=== PATIENT | male | born 1980 | race Caucasian/White ===

== ENCOUNTER 2020-05-22 11:05 | Emergency (ER) | payer MEDICAID ==
[~2020-05-22] VITALS: Ht 195.6 cm; Wt 90.7 kg
[2020-05-22 11:05] VITALS: BP_SYST 89
--- NOTE | 2020-05-22 11:05 | NUR ---
BROUGHT BACK TO BED #6 VIA WHEELCHAIR, PLACED IN BED AND TRIAGED. REPORT GIVEN TO KAY
--- NOTE | 2020-05-22 11:10 | NUR ---
ER Dr. Garcia at bedside examining patient.
--- NOTE | 2020-05-22 11:20 | NUR ---
Patient came from home for evaluation of sudden onsite dizziness, nausea, and weakness last night. Patient states that it started around 2200 last night and he still feels weak and dizzy. He denies pain at this time.
[2020-05-22] MEDS ORDERED: MECLIZINE HCL 25 MG TABLET (ANITVERT) PO ONE (11:45)
[2020-05-22 11:51] LABS: BASOPHILS # (AUTO) 0.1 K/uL (0.0-0.2); BASOPHILS % (AUTO) 0.4 % (0.0-2.0); EOSINOPHILS % (AUTO) 0.1 % (0.0-4.0); HEMATOCRIT 40.6 % (36-54); HEMOGLOBIN 13.9 g/dL (14.0-18.0); LYMPHOCYTES # (AUTO) 1.9 K/uL (1.0-5.5); LYMPHOCYTES % (AUTO) 13.5 % (20.5-51.5); MEAN CORPUSCULAR HEMOGLOBIN 32 pg (27-31); MEAN CORPUSCULAR HGB CONC 34 % (32-36); MEAN CORPUSCULAR VOLUME 93 fL (79.0-98.0); MONOCYTES # (AUTO) 1.2 K/uL (0.0-1.0); MONOCYTES % (AUTO) 8.6 % (1.7-9.3); NEUTROPHILS # (AUTO) 10.7 K/uL (1.8-7.7); NEUTROPHILS % (AUTO) 77.4 % (40.0-70.0); PLATELET COUNT (AUTO) 396 K/uL (130-430); RED BLOOD CELL COUNT(AUTO) 4.35 MIL/uL (4.2-6.2); RED CELL DISTRIBUTION WIDTH 13.3 % (9.0-15.0); WHITE BLOOD COUNT (AUTO) 13.9 K/uL (4.8-10.8)
--- NOTE | 2020-05-22 11:54 | NUR ---
Antivert not available. Spoke with Lelo in pharmacy, she stated they will send it over.
--- NOTE | 2020-05-22 12:00 | NUR ---
Patient transported to radiology via WC, accompanied by STAFF.
[2020-05-22 12:09] LABS: INR 1.1 (0.80-1.20); PROTHROMBIN TIME 11.6 SECS (9.5-12.5)
[2020-05-22 12:10] LABS: CALCIUM 8.8 mg/dL (8.4-11.0); CREATININE 1.07 mg/dL (0.55-1.30); POTASSIUM 4.1 mmol/L (3.5-5.1)
--- NOTE | 2020-05-22 12:15 | NUR ---
Returned from radiology, back to [facility].
[2020-05-22 12:16] LABS: ALBUMIN 3.8 g/dL (3.4-4.8); TOTAL BILIRUBIN 0.4 mg/dL (0.0-1.0)
[2020-05-22] MEDS ORDERED: MECL-160 PO (13:38)
--- NOTE | 2020-05-22 13:48 | NUR ---
Patient given written and verbal discharge instructions and verbalizes understanding. ER MD discussed with patient the results and treatment provided. Patient in stable condition. ID arm band removed. IV catheter removed intact and dressing applied, no active bleeding. Rx of antivert given. Patient educated on pain management and to follow up with PMD. Pain Scale 0/10. Opportunity for questions provided and answered. Medication side effect fact sheet provided.
[2020-05-22 13:49] VITALS: BP_SYST 106
== END 2020-05-22 13:48 | disposition home or self-care (01) ==
LOC: SED 11:05
DX: H81.10 Benign paroxysmal vertigo, unspecified ear (principal)
CPT/HCPCS: 36415; 70450-TC; 71045; 76376; 80053; 82962; 85025; 85610-TC; 85730-TC; 93005; 99285

== ENCOUNTER 2022-04-01 11:23 | Emergency (ER) | payer MEDICAID ==
[~2022-04-01] VITALS: Ht 195.6 cm; Wt 90.7 kg
[~2022-04-01 11:23] MED LIST: MECL-160 PO
[2022-04-01 11:28] VITALS: BP_SYST 137
[2022-04-01 12:10] LABS: BASOPHILS # (AUTO) 0.1 K/uL (0.0-0.2); BASOPHILS % (AUTO) 0.7 % (0.0-2.0); EOSINOPHILS # (AUTO) 0.2 K/uL (0.0-0.4); HEMOGLOBIN 14.6 g/dL (14.0-18.0); LYMPHOCYTES % (AUTO) 27.4 % (20.5-51.5); MEAN CORPUSCULAR HEMOGLOBIN 33 pg (27-31); MEAN CORPUSCULAR HGB CONC 35 % (32-36); MEAN CORPUSCULAR VOLUME 93 fL (79.0-98.0); MONOCYTES # (AUTO) 1.7 K/uL (0.0-1.0); MONOCYTES % (AUTO) 15.4 % (1.7-9.3); NEUTROPHILS # (AUTO) 5.9 K/uL (1.8-7.7); NEUTROPHILS % (AUTO) 54.5 % (40.0-70.0); PLATELET COUNT (AUTO) 462 K/uL (130-430); RED BLOOD CELL COUNT(AUTO) 4.51 MIL/uL (4.2-6.2); RED CELL DISTRIBUTION WIDTH 13.5 % (9.0-15.0); WHITE BLOOD COUNT (AUTO) 10.9 K/uL (4.8-10.8)
[2022-04-01 12:19] LABS: ANION GAP 5 (5-15); CALCIUM 9.3 mg/dL (8.4-11.0); CHLORIDE 102 mmol/L (98-107); CREATININE 1.01 mg/dL (0.55-1.30); GLUCOSE 94 mg/dL (70-99); UREA NITROGEN, BLOOD 18 mg/dL (8-21)
[2022-04-01 12:20] LABS: GFR AFRICAN AMERICAN 105 mL/min (>90)
[2022-04-01 12:22] LABS: INR 1.3 (0.80-1.20); PROTHROMBIN TIME 12.7 SECS (9.5-12.5)
[2022-04-01 12:26] LABS: ALANINE AMINOTRANSFERASE 28 U/L (12-78); ALBUMIN 4.2 g/dL (3.4-4.8); ASPARTATE AMINOTRANSFERASE 20 U/L (10-37); TOTAL BILIRUBIN 0.4 mg/dL (0.0-1.0)
--- NOTE | 2022-04-01 12:34 | NUR ---
Patient to ER bed 07 to gown for evaluation. Side rails up.
--- NOTE | 2022-04-01 12:35 | NUR ---
WALKED PT TO BED7 THEN PUT ALL MONITOR ON.
--- NOTE | 2022-04-01 15:21 | NUR ---
PT WAS DONE THE XRAY, LYING ON BED. DENIES PAIN. PT CAME FROM HOME FOR CHEST PAIN SINCE YESTEDAY AFTER LIFTING [employer]. PT HAS HX OF HEART CONDITION. SO PT WORRY ABOUT HIS HEART TO COME IN. FAMILY BEDSIDE WITH PT. NO ACUTE DISTRESS.
--- NOTE | 2022-04-01 15:57 | NUR ---
Patient given written and verbal discharge instructions and verbalizes understanding. ER MD discussed with patient the results and treatment provided. Patient in stable condition. ID arm band removed. No Rx given. Patient educated on pain management and to follow up with PMD. Pain Scale 0/10 . Opportunity for questions provided and answered. Medication side effect fact sheet provided.
[2022-04-01 15:58] VITALS: BP_SYST 113
--- NOTE | 2022-04-01 15:59 | NUR ---
Note undone in EDM - 04/01/22 at 1600 by [email or web address] Patient given written and verbal discharge instructions and verbalizes understanding. ER discussed with patient the results and treatment provided. Patient in stable condition. ID arm band removed. No Rx given. Patient educated on pain management and to follow up with PMD. Pain Scale 0/10. Opportunity for questions provided and answered. Medication side effect fact sheet provided.
== END 2022-04-01 15:57 | disposition home or self-care (01) ==
LOC: SED 11:23
DX: R07.81 Pleurodynia (principal); Z79.899 Other long term (current) drug therapy
CPT/HCPCS: 36415; 71045; 71250-TC; 76376; 80053; 83880; 84484; 85025; 85610-TC; 85730-TC; 93005; 99285

== ENCOUNTER 2022-11-10 09:42 | Emergency (ER) | payer MEDICAID ==
[~2022-11-10] VITALS: Ht 195.6 cm; Wt 90.7 kg
[2022-11-10 10:00] VITALS: BP_SYST 121; PULSE 77; RESP 20; TEMP 96.6; O2SAT 99
[2022-11-10] MEDS ORDERED: NACL 0.9% 1,000 ML IV ONE (10:30)
[2022-11-10 10:55] LABS: BASOPHILS # (AUTO) 0.1 K/uL (0.0-0.2); BASOPHILS % (AUTO) 0.8 % (0.0-2.0); EOSINOPHILS # (AUTO) 0.3 K/uL (0.0-0.4); HEMATOCRIT 41.5 % (36-54); HEMOGLOBIN 14.1 g/dL (14.0-18.0); LYMPHOCYTES # (AUTO) 3.4 K/uL (1.0-5.5); LYMPHOCYTES % (AUTO) 39.2 % (20.5-51.5); MEAN CORPUSCULAR HEMOGLOBIN 32 pg (27-31); MEAN CORPUSCULAR HGB CONC 34 % (32-36); MEAN CORPUSCULAR VOLUME 94 fL (79.0-98.0); MONOCYTES # (AUTO) 1.6 K/uL (0.0-1.0); NEUTROPHILS # (AUTO) 3.3 K/uL (1.8-7.7); PLATELET COUNT (AUTO) 443 K/uL (130-430); RED BLOOD CELL COUNT(AUTO) 4.44 MIL/uL (4.2-6.2); RED CELL DISTRIBUTION WIDTH 13.6 % (9.0-15.0); WHITE BLOOD COUNT (AUTO) 8.6 K/uL (4.8-10.8)
[2022-11-10 11:11] LABS: ANION GAP 6 (5-15); CALCIUM 8.8 mg/dL (8.4-11.0); CARBON DIOXIDE 30 mmol/L (23-29); CHLORIDE 102 mmol/L (98-107); CREATININE 0.96 mg/dL (0.55-1.30); GFR AFRICAN AMERICAN 110 mL/min (>90); GLUCOSE 90 mg/dL (74-106); POTASSIUM 4.1 mmol/L (3.5-5.1); SODIUM SERUM 138 mmol/L (136-145); UREA NITROGEN, BLOOD 22 mg/dL (8-21)
[2022-11-10 11:15] LABS: GFR NON AFRICAN-AMERICAN 91 mL/min (>90); INR 2.1 (0.80-1.20); PROTHROMBIN TIME 21.3 SECS (9.5-12.5)
[2022-11-10 11:27] LABS: ALANINE AMINOTRANSFERASE 42 U/L (12-78); ASPARTATE AMINOTRANSFERASE 27 U/L (10-37); TOTAL BILIRUBIN 0.5 mg/dL (0.0-1.0); TOTAL PROTEIN, SERUM 7.3 g/dL (6.4-8.3)
[2022-11-10 12:00] VITALS: BP_SYST 121; PULSE 65; RESP 19; TEMP 97.6; O2SAT 97
== END 2022-11-10 13:58 | disposition home or self-care (01) ==
LOC: SED 09:42
DX: R53.1 Weakness (principal); R06.02 Shortness of breath; R05.9 Cough, unspecified; R11.2 Nausea with vomiting, unspecified; Z79.899 Other long term (current) drug therapy; Z20.822 Contact with and (suspected) exposure to COVID-19
CPT/HCPCS: 99285; 96360; 71045; 87426; 80053; 83880; 85025; 85610; 85730; 87040; 84484; 36415; 93005; 83605; J7030